=== PATIENT | female | born 1935 | race Caucasian/White ===

== ENCOUNTER → 2016-05-11 | Outpatient (CLI) | payer OTHER, MEDICARE ==
[~2016-05-11] MED LIST: CALC-51; EVISTA; FISHOIL; GLUCOSAMINE/CHONDROI; METR0.754; MULT-506; PRMVC; SYN150; VITAMIN E; [UNRECOGNIZED DRUG - CODE]; [UNRECOGNIZED DRUG - OTHER]
--- NOTE | 2016-05-11 16:47 | MAMMOGRAPHY REPORT ---
BILATERAL DIGITAL SCREENING MAMMOGRAM WITH CAD: 05/11/2016 CLINICAL HISTORY: Routine screening examination. TECHNIQUE: Bilateral CC and MLO views were obtained. Current study was also evaluated with a Comput er Aided Detection (CAD) system. COMPARISON: Comparison is made to exams dated: 05/02/2015 mammogram, 01/12/2013 mammogram, 12/31/2011 mammogram, 04/28/2010 mammogram - [facility], 07/23/2008, and 09/30/2007. BREAST COMPOSITION: There are scattered areas of fibroglandular density in both breasts. FINDINGS: There are stable benign-appearing rodlike and coarse calcifications in the breasts. No kaminski spicious mass, architectural distortion or cluster of microcalcifications is seen. IMPRESSION: ACR BI-RADS CATEGORY 1: NEGATIVE There is no mammographic evidence of malignancy. A 1 year screening mammogram is recommended. The p atient will receive written notification of the results. Approximately 10% of breast cancers are not detected with mammography. A negative mammographic repor t should not delay biopsy if a clinically suggestive mass is present. Madie Fregoso M.D. ay/:05/11/2016 15:11:33 [employer] Supervisor: Sydnee COX)(Caro), [facility] letter sent: Normal 1/2 BI-RADS Code: ACR BI-RADS Category 1: Negative
== END | disposition home or self-care (01) ==
LOC: C.MAMM 13:17
PROVIDERS: ATTEND Family Medicine
DX: Z12.31 Encounter for screening mammogram for malignant neoplasm of breast (principal)

== ENCOUNTER → 2016-12-07 | Outpatient (CLI) | payer OTHER, MEDICARE | END | disposition home or self-care (01) | LOC: C.LABPVFM 10:11 | PROVIDERS: ATTEND Family Medicine | DX: E03.9 Hypothyroidism, unspecified (principal) ==

== ENCOUNTER → 2017-03-23 | Outpatient (CLI) | payer OTHER, MEDICARE ==
[2017-03-23 13:20] LABS: ESTIMATED AVERAGE GLUCOSE 114 mg/dl; HA1C FLAG Normal (Normal)
== END | disposition home or self-care (01) ==
LOC: C.LABPVFM 08:27
PROVIDERS: ATTEND Family Medicine
DX: R73.09 Other abnormal glucose (principal)

== ENCOUNTER → 2017-04-15 | Outpatient (CLI) | payer OTHER, MEDICARE ==
[~2017-04-15] MED LIST changes: +ADVIN25/60 INH; +CALC-354 PO; +CHOL2000 PO; +CLR10 PO; +LEVO150T9 PO; +MOME6000 NAE; +MULT-1092 PO; +OMEP20CA9 PO; +OMG3 PO; +VITA400C28 PO; +VNTHFA/IN INH
== END | disposition home or self-care (01) ==
LOC: C.PATHSPEC 13:38
PROVIDERS: ATTEND Dermatology
DX: C44.622 Squamous cell carcinoma of skin of right upper limb, including shoulder (principal)

== ENCOUNTER → 2017-05-25 | Outpatient (CLI) | payer OTHER, MEDICARE ==
[~2017-05-25] MED LIST changes: -ADVIN25/60 INH; -CALC-354 PO; -CHOL2000 PO; -CLR10 PO; -LEVO150T9 PO; -MOME6000 NAE; -MULT-1092 PO; -OMEP20CA9 PO; -OMG3 PO; -VITA400C28 PO; -VNTHFA/IN INH
== END | disposition home or self-care (01) ==
LOC: C.PATHSPEC 12:00
PROVIDERS: ATTEND Plastic Surgery
DX: D04.61 Carcinoma in situ of skin of right upper limb, including shoulder (principal)

== ENCOUNTER → 2017-07-09 | Outpatient (CLI) | payer OTHER, MEDICARE ==
--- NOTE | 2017-07-12 12:43 | MAMMOGRAPHY REPORT ---
BILATERAL DIGITAL SCREENING MAMMOGRAM TOMOSYNTHESIS WITH CAD: 07/09/2017 CLINICAL HISTORY: Routine screening. Patient has no complaints. TECHNIQUE: Breast tomosynthesis in addition to standard 2D mammography was performed. Current study was also evaluated with a Computer Aided Detection (CAD) system. COMPARISON: Comparison is made to exams dated: 05/11/2016 mammogram, 05/02/2015 mammogram, 01/15/2014 m ammogram, 01/12/2013 mammogram, 12/30/2012 mammogram, and 12/31/2011 mammogram - [facility]. BREAST COMPOSITION: There are scattered areas of fibroglandular density in both breasts. FINDINGS: No suspicious masses, calcifications, or areas of architectural distortion are noted in ei ther breast. There has been no significant interval change compared to prior exams. Scattered bilater al benign-appearing calcifications are not significantly changed. IMPRESSION: ACR BI-RADS CATEGORY 2: BENIGN There is no mammographic evidence of malignancy. A 1 year screening mammogram is recommended. The pa tient will receive written notification of the results. Approximately 10% of breast cancers are not detected with mammography. A negative mammographic report should not delay biopsy if a clinically suggestive mass is present. Kelel Downey M.D. /:07/09/2017 14:37:12 Skein Drier: Adriana COX)(M), [facility] letter sent: Normal 1/2 BI-RADS Code: ACR BI-RADS Category 2: Benign
== END | disposition home or self-care (01) ==
LOC: C.MAMM 14:05
PROVIDERS: ATTEND Family Medicine
DX: Z12.31 Encounter for screening mammogram for malignant neoplasm of breast (principal)

== ENCOUNTER 2017-07-25 13:26 | Emergency (ER) | payer OTHER, MEDICARE ==
[~2017-07-25] VITALS: Ht 157.5 cm; Wt 63.2 kg
[2017-07-25 13:36] VITALS: TEMP 36.5; Ht 157.5 cm; Wt 63.2 kg
[2017-07-25 14:08] VITALS: O2SAT 95
[2017-07-25] MEDS ORDERED: ALBUTEROL 0.083% NEBU SOLN 3 ML VIAL INH STA (14:22)
--- NOTE | 2017-07-25 14:24 | EMERGENCY ROOM VISIT NOTE ---
History Report prepared by Bertha: Aguilar Haddad Under the Supervision of: Dr. Donn Krishna M.D. First contact with patient: 14:17 Chief Complaint: SHORTNESS OF BREATH Stated Complaint: RETAINING FLUID,CHEST FEELS FULL History of Present Illness The patient is an 82 year old female with a history of asthma who presents to the Emergency Room with complaints of persistent shortness of breath with exertion over the past couple days. She states that when walking her dog the past few days, she has gotten more short of breath than usual. The patient says that she noticed when she woke up this morning that her right knee was swollen. She notes that there is a sore spot above the right knee, but the knee is not actually swollen. The patient says that she has not twisted or injured the knee. She denies any knee pain with walking. The patient notes that she is not on any blood thinners or water pills. Source of History: patient Onset: Past few days Position: other (global) Symptom Intensity: while walking dog gets SOB Quality: other (SOB on exertion) Timing: other (persitent) Modifying Factors (Worsening): exertion Note: Associated symptoms: Right knee swelling starting today with sore spot above knee. Denies right knee pain. Review of Systems See HPI for pertinent positives & negatives. A total of 10 systems reviewed and were otherwise negative. Past Medical & Surgical Medical Problems: (1) Asthma Family History No pertinent family history Social History Smoking Status: Former Smoker Drug Use: none Marital Status: Occupation Status: retired Current/Historical Medications Scheduled Calcium Carbonate-Cholecalcife (Caltrate 600+D), 1 TAB PO BID Cholecalciferol (Vitamin D3), 1 CAP PO DAILY Fish Oil (Fish Oil), 1 CAP PO BID Fluticasone Prop/Salmeterol (Advair Diskus 250/50 60 Dose), 1 PUFF INH BID Levothyroxine Sodium (Levothyroxine Sodium), 1 TAB PO DAILY Loratadine (Claritin), 10 MG PO DAILY Mometasone Furoate (Nasal) (Mometasone Furoate), 1 SPRAY CHELA BID Multiple Vitamins W/ Minerals (Centrum Silver 50+Women), 1 TAB PO DAILY Omeprazole (Prilosec), Unknown Dose PO DAILY Vitamin E (Alph-E), 1 CAP PO DAILY Scheduled PRN Albuterol Hfa (Ventolin Hfa), 2-4 PUFFS INH Q6H PRN for SOB/Wheezing Miscellaneous Medications Metronidazole Hcl (Metrocream) Allergies Coded Allergies: Penicillins (Unverified Allergy, Intermediate, ITCHY/RASH, 07/25/17) Sulfa Drugs (Unverified Allergy, Intermediate, RASH/ITCHY, 07/25/17) Latex (Unverified Allergy, Mild, RASH, 07/25/17) Physical Exam Vital Signs Date Time Temp Pulse Resp B/P (MAP) Pulse Ox O2 Delivery O2 Flow Rate FiO2 07/25/17 17:20 75 20 131/71 93 Room Air 07/25/17 15:31 69 20 153/82 95 Room Air 07/25/17 14:50 98 Room Air 07/25/17 14:09 66 07/25/17 14:08 95 Room Air 07/25/17 13:36 36.5 77 16 146/88 96 Room Air Physical Exam GENERAL: Awake, alert, well-appearing, in no acute distress HENT: Normocephalic, atraumatic. Oropharynx unremarkable. EYES: Normal conjunctiva. Sclera non-icteric. NECK: Supple. No nuchal rigidity. FROM. No JVD. RESPIRATORY: Clear to auscultation. CARDIAC: Regular rate, normal rhythm. Extremities warm and well perfused. Pulses equal. ABDOMEN: Soft, non-distended. No tenderness to palpation. No rebound or guarding. No masses. RECTAL: Deferred. MUSCULOSKELETAL: Chest examination reveals no tenderness. The back is symmetrical on inspection without obvious abnormality. There is no CVA tenderness to palpation. No joint edema. LOWER EXTREMITIES: Calves are equal size bilaterally and non-tender. Slight swelling to the right medial knee. No discoloration. NEURO: Normal sensorium. No sensory or motor deficits noted. SKIN: No rash or jaundice noted. Medical Decision & Procedures ER Provider Diagnostic Interpretation: Radiology results as stated below per my review and radiologist interpretation: ULTRASOUND R VENOUS DOPP LOWER EXT UNILAT CLINICAL HISTORY: Right leg pain COMPARISON STUDY: No previous studies for comparison. FINDINGS: Real-time and color flow Doppler imaging were performed. Flow was seen within the femoral, popliteal and calf veins with no intraluminal thrombus demonstrated. The saphenous vein is patent. There is a 13 x 25 x 4 mm complex right popliteal cyst. IMPRESSION: No evidence of right lower extremity DVT. Electronically signed by: Manuelito Reinoso M.D. 07/25/2017 4:57 PM Dictated Date/Time: 07/25/2017 4:57 PM R KNEE 2 VIEWS ROUTINE CLINICAL HISTORY: Right knee pain COMPARISON: None. DISCUSSION: No acute fractures are visualized. There is chondrocalcinosis. There is calcification in the region of the lateral collateral ligament. There is dorsal patellar spurring. There is a trace joint effusion. IMPRESSION: Moderate osteoarthritic change. No acute fractures. Electronically signed by: Manuelito Reinoso M.D. 07/25/2017 2:54 PM Dictated Date/Time: 07/25/2017 2:53 PM CHEST ONE VIEW PORTABLE CLINICAL HISTORY: Shortness of breath COMPARISON STUDY: No previous studies for comparison. FINDINGS: The cardiac and mediastinal contours are normal. There is no evidence of focal pulmonary consolidation. There is no evidence of failure. No pleural effusions are visualized.[ IMPRESSION: No active disease in the chest. Electronically signed by: Manuelito Reinoso M.D. 07/25/2017 2:53 PM Dictated Date/Time: 07/25/2017 2:53 PM Laboratory Results 07/25/17 13:55 Red Blood Count 4.86, Mean Corpuscular Volume 91.6, Mean Corpuscular Hemoglobin 30.9, Mean Corpuscular Hemoglobin Concent 33.7, Mean Platelet Volume 8.2, Neutrophils (%) (Auto) 48.4, Lymphocytes (%) (Auto) 33.0, Monocytes (%) (Auto) 11.2, Eosinophils (%) (Auto) 7.0, Basophils (%) (Auto) 0.2, Neutrophils # (Auto ) 4.55, Lymphocytes # (Auto) 3.10, Monocytes # (Auto) 1.05, Eosinophils # (Auto ) 0.66, Basophils # (Auto) 0.02 07/25/17 13:55 Test 07/25/17 13:55 07/25/17 15:16 White Blood Count 9.40 K/uL (4.8-10.8) Red Blood Count 4.86 M/uL (4.2-5.4) Hemoglobin 15.0 g/dL (12.0-16.0) Hematocrit 44.5 % (37-47) Mean Corpuscular Volume 91.6 fL (80-100) Mean Corpuscular Hemoglobin 30.9 pg (25-34) Mean Corpuscular Hemoglobin Concent 33.7 g/dl (32-36) Platelet Count 187 K/uL (130-400) Mean Platelet Volume 8.2 fL (7.4-10.4) Neutrophils (%) (Auto) 48.4 % Lymphocytes (%) (Auto) 33.0 % Monocytes (%) (Auto) 11.2 % Eosinophils (%) (Auto) 7.0 % Basophils (%) (Auto) 0.2 % Neutrophils # (Auto) 4.55 K/uL (1.4-6.5) Lymphocytes # (Auto) 3.10 K/uL (1.2-3.4) Monocytes # (Auto) 1.05 K/uL (0.11-0.59) Eosinophils # (Auto) 0.66 K/uL (0-0.5) Basophils # (Auto) 0.02 K/uL (0-0.2) RDW Standard Deviation 45.7 fL (36.4-46.3) RDW Coefficient of Variation 13.7 % (11.5-14.5) Immature Granulocyte % (Auto) 0.2 % Immature Granulocyte # (Auto) 0.02 K/uL (0.00-0.02) Anion Gap 7.0 mmol/L (3-11) Est Creatinine Clear Calc Drug Dose 43.8 ml/min Estimated GFR () 71.4 Estimated GFR (Non- 61.6 BUN/Creatinine Ratio 21.3 (10-20) Calcium Level 9.7 mg/dl (8.5-10.1) Total Bilirubin 0.5 mg/dl (0.2-1) Aspartate Amino Transf (AST/SGOT) 23 U/L (15-37) Alanine Aminotransferase (ALT/SGPT) 37 U/L (12-78) Alkaline Phosphatase 59 U/L (45-117) Total Creatine Kinase 138 U/L (26-192) Creatine Kinase MB 2.4 ng/ml (0.5-3.6) Creatine Kinase MB Ratio 1.7 (0-3.0) Troponin I < 0.015 ng/ml (0-0.045) Total Protein 8.3 gm/dl (6.4-8.2) Albumin 4.2 gm/dl (3.4-5.0) Globulin 4.1 gm/dl (2.5-4.0) Albumin/Globulin Ratio 1.0 (0.9-2) Urine Color YELLOW Urine Appearance CLEAR (CLEAR) Urine pH 5.5 (4.5-7.5) Urine Specific [place] 1.009 (1.000-1.030) Urine Protein NEG (NEG) Urine Glucose (UA) NEG (NEG) Urine Ketones NEG (NEG) Urine Occult Blood TRACE (NEG) Urine Nitrite NEG (NEG) Urine Bilirubin NEG (NEG) Urine Urobilinogen NEG (NEG) Urine Leukocyte Esterase NEG (NEG) Urine WBC (Auto) 0 /hpf (0-5) Urine RBC (Auto) 5-10 /hpf (0-4) Urine Hyaline Casts (Auto) 0 /lpf (0-5) Urine Epithelial Cells (Auto) 0-5 /lpf (0-5) Urine Bacteria (Auto) NEG (NEG) Labs reviewed by ED physician. Medications Administered Medications (Trade) Dose Ordered Sig/[place] Route Start Time Stop Time Status Last Admin Dose Admin Albuterol Sulfate (Ventolin 0.083% 2.5MG/3ML Neb) 2.5 mg NOW STAT INH 07/25/17 14:22 07/25/17 14:26 DC 07/25/17 14:49 2.5 MG ECG Per My Interpretation Indication: SOB/dyspnea Rate (beats per minute): 68 Rhythm: normal sinus Findings: other (no ST elevation or depression, normal axis) ED Course 1419: Past medical records reviewed. The patient was evaluated in room B2. A complete history and physical examination was performed. 1422: Ventolin 0.083% 2.5MG/3ML Neb 2.5 mg INH. 1711: Upon reexamination the patient is resting. I discussed results and treatment plan with the patient. She verbalizes agreement and understanding. The patient is ready for discharge. Medical Decision Differential diagnosis: Etiologies such as infections, reactive airway disease, pneumonia, pneumothorax , COPD, CHF, cardiac ischemia, pulmonary embolism, musculoskeletal, gastrointestinal, as well as others were entertained. This is an 82-year-old female presents emergency department complaining of swelling to her right knee area. Patient denies twisting or pulling it in any way. The patient is also concerned about her heart though she denies any chest pain or shortness of breath. chest x-ray does not suggest any volume overload and the patient has a normal EKG. I do believe that the patient is suffering from a Cam cyst based on the ultrasound of the right lower extremity. I stressed the need for follow-up with the patient's orthopedic surgeon. Patient was in agreement with the treatment plan. Medication Reconcilliation Current Medication List: was personally reviewed by me Blood Pressure Screening Patient's blood pressure: Elevated blood pressure Blood pressure disposition: Elevated BP felt to be situational Impression Primary Impression: Cam's cyst of knee Scribe Attestation The scribe's documentation has been prepared under my direction and personally reviewed by me in its entirety. I confirm that the note above accurately reflects all work, treatment, procedures, and medical decision making performed by me. Departure Information Dispostion Home / Self-Care Referrals Emma Claros M.D. (PCP) Delbert Cifuentes M.D. Patient Instructions ED Cyst [place], My [facility] Additional Instructions Follow up with Dr Cifuentes's office You have been examined and treated today on an emergency basis only. This is not a substitute for, or an effort to provide, complete comprehensive medical care. It is impossible to recognize and treat all injuries or illnesses in a single emergency department visit. It is therefore important that you follow up closely with Dr Claros's office. Call as soon as possible for an appointment. Thank you for your time and consideration. I look forward to speaking with you again soon. Please don't hesitate to call us if you have any questions. Problem Qualifiers Primary Impression: Cam's cyst of knee Laterality: right Qualified Codes: M71.21 - Synovial cyst of popliteal space [Dorina], right knee
[2017-07-25 14:40] LABS: ALBUMIN 4.2 gm/dl (3.4-5.0); ALT/SGPT 37 U/L (12-78); BLOOD UREA NITROGEN 19 mg/dl (7-18); CALCIUM 9.7 mg/dl (8.5-10.1); CARBON DIOXIDE 28 mmol/L (21-32); CREATININE 0.88 mg/dl (0.60-1.20); GLUCOSE 89 mg/dl (70-99); POTASSIUM 4.1 mmol/L (3.5-5.1); SODIUM 135 mmol/L (136-145)
[2017-07-25] MEDS ORDERED: MOME6000 NAE (14:42)
[2017-07-25] MEDS ORDERED: OMEP20CA9 PO (14:42)
[2017-07-25] MEDS ORDERED: ADVIN25/60 INH (14:42)
[2017-07-25] MEDS ORDERED: MULT-1092 PO (14:42)
[2017-07-25] MEDS ORDERED: LEVO150T9 PO (14:42)
[2017-07-25] MEDS ORDERED: CHOL2000 PO (14:42)
[2017-07-25] MEDS ORDERED: CALC-354 PO (14:42)
[2017-07-25] MEDS ORDERED: VITA400C28 PO (14:42)
[2017-07-25] MEDS ORDERED: OMG3 PO (14:42)
[2017-07-25] MEDS ORDERED: VNTHFA/IN INH (14:42)
[2017-07-25 14:45] LABS: ALKALINE PHOSPHATASE 59 U/L (45-117); AST/SGOT 23 U/L (15-37); CKMB 2.4 ng/ml (0.5-3.6); TOTAL PROTEIN 8.3 gm/dl (6.4-8.2)
[2017-07-25] MEDS ORDERED: CLR10 PO (14:46)
--- NOTE | 2017-07-25 14:54 | DIAGNOSTIC IMAGING REPORT ---
CHEST ONE VIEW PORTABLE CLINICAL HISTORY: Shortness of breath COMPARISON STUDY: No previous studies for comparison. FINDINGS: The cardiac and mediastinal contours are normal. There is no evidence of focal pulmonary consolidation. There is no evidence of failure. No pleural effusions are visualized.[ IMPRESSION: No active disease in the chest. Electronically signed by: Manuelito Reinoso M.D. 07/25/2017 2:53 PM Dictated Date/Time: 07/25/2017 2:53 PM
--- NOTE | 2017-07-25 14:56 | DIAGNOSTIC IMAGING REPORT ---
R KNEE 2 VIEWS ROUTINE CLINICAL HISTORY: Right knee pain COMPARISON: None. DISCUSSION: No acute fractures are visualized. There is chondrocalcinosis. There is calcification in the region of the lateral collateral ligament. There is dorsal patellar spurring. There is a trace joint effusion. IMPRESSION: Moderate osteoarthritic change. No acute fractures. Electronically signed by: Manuelito Reinoso M.D. 07/25/2017 2:54 PM Dictated Date/Time: 07/25/2017 2:53 PM
[2017-07-25 16:06] LABS: BASO % 0.2 %; BASO ABS # 0.02 K/uL (0-0.2); EOS ABS # 0.66 K/uL (0-0.5); HEMATOCRIT 44.5 % (37-47); IG# 0.02 K/uL (0.00-0.02); MEAN CELL VOLUME 91.6 fL (80-100); MEAN CORPUSCULAR HEMOGLOBIN 30.9 pg (25-34); MEAN CORPUSCULAR HGB CONC 33.7 g/dl (32-36); MEAN PLATELET VOLUME 8.2 fL (7.4-10.4); MONO % 11.2 %; MONO ABS # 1.05 K/uL (0.11-0.59); NEUT % 48.4 %; NEUT ABS # 4.55 K/uL (1.4-6.5); PLATELET COUNT 187 K/uL (130-400); RED CELL DISTRIBUTION WIDTH CV 13.7 % (11.5-14.5); RED CELL DISTRIBUTION WIDTH SD 45.7 fL (36.4-46.3)
--- NOTE | 2017-07-25 16:59 | DIAGNOSTIC IMAGING REPORT ---
ULTRASOUND R VENOUS DOPP LOWER EXT UNILAT CLINICAL HISTORY: Right leg pain COMPARISON STUDY: No previous studies for comparison. FINDINGS: Real-time and color flow Doppler imaging were performed. Flow was seen within the femoral, popliteal and calf veins with no intraluminal thrombus demonstrated. The saphenous vein is patent. There is a 13 x 25 x 4 mm complex right popliteal cyst. IMPRESSION: No evidence of right lower extremity DVT. Electronically signed by: Manuelito Reinoso M.D. 07/25/2017 4:57 PM Dictated Date/Time: 07/25/2017 4:57 PM
[2017-07-25 17:20] VITALS: BP 131/71; PULSE 75; O2SAT 93
== END 2017-07-25 17:50 | disposition home or self-care (01) ==
LOC: C.EDB 13:26
DX: M71.21 Synovial cyst of popliteal space [Baker], right knee (principal); J45.909 Unspecified asthma, uncomplicated; Z87.891 Personal history of nicotine dependence; Z79.899 Other long term (current) drug therapy; Z88.0 Allergy status to penicillin; Z88.2 Allergy status to sulfonamides; Z91.040 Latex allergy status

== ENCOUNTER → 2017-07-29 | Outpatient (CLI) | payer OTHER, MEDICARE ==
[~2017-07-29] MED LIST changes: +ADVIN25/60 INH; +CALC-354 PO; -CALC-51; +CHOL2000 PO; +CLR10 PO; -EVISTA; -FISHOIL; -GLUCOSAMINE/CHONDROI; +LEVO150T9 PO; +MOME6000 NAE; +MULT-1092 PO; -MULT-506; +OMEP20CA9 PO; +OMG3 PO; -PRMVC; -SYN150; +VITA400C28 PO; -VITAMIN E; +VNTHFA/IN INH; -[UNRECOGNIZED DRUG - CODE]; -[UNRECOGNIZED DRUG - OTHER]
== END | disposition home or self-care (01) ==
LOC: C.LABSPEC 13:38
PROVIDERS: ATTEND Dermatology
DX: T81.4XXA Infection following a procedure, initial encounter (principal); Y83.9 Surgical procedure, unspecified as the cause of abnormal reaction of the patient, or of later complication, without mention of misadventure at the time of the procedure

== ENCOUNTER → 2017-09-01 | Outpatient (CLI) | payer OTHER, MEDICARE ==
[2017-09-01 13:21] LABS: HEMATOCRIT 37.8 % (37-47); HEMOGLOBIN 12.5 g/dL (12.0-16.0); MEAN CELL VOLUME 90.2 fL (80-100); MEAN CORPUSCULAR HEMOGLOBIN 29.8 pg (25-34); MEAN CORPUSCULAR HGB CONC 33.1 g/dl (32-36); RED CELL DISTRIBUTION WIDTH CV 13.2 % (11.5-14.5); RED CELL DISTRIBUTION WIDTH SD 43.5 fL (36.4-46.3); WHITE BLOOD COUNT 5.45 K/uL (4.8-10.8)
[2017-09-01 13:26] LABS: ALT/SGPT 33 U/L (12-78); AST/SGOT 21 U/L (15-37); BLOOD UREA NITROGEN 10 mg/dl (7-18); CALCIUM 8.9 mg/dl (8.5-10.1); CARBON DIOXIDE 30 mmol/L (21-32); CREATININE 0.66 mg/dl (0.60-1.20); GLUCOSE 82 mg/dl (70-99); POTASSIUM 3.4 mmol/L (3.5-5.1); SODIUM 142 mmol/L (136-145)
[2017-09-01 13:28] LABS: ALKALINE PHOSPHATASE 44 U/L (45-117)
[2017-09-01 13:42] LABS: MEAN PLATELET VOLUME 11.4 fL (7.4-10.4); PLATELET COUNT 132 K/uL (130-400)
[2017-09-01 13:44] LABS: BASO % 0.4 %; BASO ABS # 0.02 K/uL (0-0.2); EOS % 5.1 %; EOS ABS # 0.28 K/uL (0-0.5); IG# 0.02 K/uL (0.00-0.02); LYMPH % 35.6 %; LYMPH ABS # 1.94 K/uL (1.2-3.4); MONO % 13.6 %; MONO ABS # 0.74 K/uL (0.11-0.59); NEUT % 44.9 %; NEUT ABS # 2.45 K/uL (1.4-6.5)
== END | disposition home or self-care (01) ==
LOC: C.LABPVFM 11:12
PROVIDERS: ATTEND Family Medicine
DX: K52.9 Noninfective gastroenteritis and colitis, unspecified (principal)

== ENCOUNTER → 2017-11-18 | Outpatient (CLI) | payer OTHER, MEDICARE | END | disposition home or self-care (01) | LOC: C.LABPVFM 13:58 | PROVIDERS: ATTEND Family Medicine | DX: E03.9 Hypothyroidism, unspecified (principal) ==

== ENCOUNTER → 2017-12-10 | Outpatient (CLI) | payer OTHER, MEDICARE ==
[2017-12-10 16:58] LABS: ALBUMIN 3.8 gm/dl (3.4-5.0); ALKALINE PHOSPHATASE 55 U/L (45-117); ALT/SGPT 31 U/L (12-78); AST/SGOT 19 U/L (15-37); BLOOD UREA NITROGEN 16 mg/dl (7-18); CALCIUM 9.6 mg/dl (8.5-10.1); CARBON DIOXIDE 26 mmol/L (21-32); CREATININE 0.82 mg/dl (0.60-1.20); GLUCOSE 87 mg/dl (70-99); POTASSIUM 4.1 mmol/L (3.5-5.1); SODIUM 139 mmol/L (136-145); TOTAL PROTEIN 7.8 gm/dl (6.4-8.2)
[2017-12-11 06:26] LABS: HEMOGLOBIN A1C 5.8 % (4.5-5.6)
[2017-12-13 13:42] LABS: HEMATOCRIT 42.4 % (37-47); HEMOGLOBIN 13.9 g/dL (12.0-16.0); MEAN CORPUSCULAR HEMOGLOBIN 30.5 pg (25-34); MEAN CORPUSCULAR HGB CONC 32.8 g/dl (32-36); RED CELL DISTRIBUTION WIDTH CV 13.9 % (11.5-14.5); RED CELL DISTRIBUTION WIDTH SD 47.2 fL (36.4-46.3); WHITE BLOOD COUNT 8.25 K/uL (4.8-10.8)
[2017-12-13 13:50] LABS: BASO % 0.1 %; BASO ABS # 0.01 K/uL (0-0.2); EOS % 6.9 %; EOS ABS # 0.57 K/uL (0-0.5); IG# 0.02 K/uL (0.00-0.02); LYMPH % 34.4 %; LYMPH ABS # 2.84 K/uL (1.2-3.4); MEAN PLATELET VOLUME 10.8 fL (7.4-10.4); MONO % 13.1 %; MONO ABS # 1.08 K/uL (0.11-0.59); NEUT % 45.3 %; NEUT ABS # 3.73 K/uL (1.4-6.5); PLATELET COUNT 157 K/uL (130-400)
== END | disposition home or self-care (01) ==
LOC: C.LABBC 13:55
PROVIDERS: ATTEND Physician Assistant Medical
DX: L65.9 Nonscarring hair loss, unspecified (principal); R73.09 Other abnormal glucose

== ENCOUNTER 2022-01-09 09:31 | Observation (INO) ==
--- NOTE | 2021-12-05 12:20 | PAT Medication Instructions ---
Medication Instructions Date of Service December 05, 2021 Home Medications Medication Instructions Recorded fluticasone 100 mcg-salmeterol 50 1 ea inhalation BID #60 ea 10/04/ mcg/dose blistr powdr for inhalation albuterol sulfate 90 mcg/actuation 2 puff inhalation Q4H PRN 03/04/21 aerosol inhaler shortness of breath or wheezing #18 grams ipratropium bromide 21 mcg (0.03 2 spray intranasal BID #30 mL 03/31/ %) nasal spray levothyroxine 150 mcg tablet 150 mcg PO QAM #90 tabs 11/10/21 Wheeled Walker #1 ea 11/18/21 calcium carbonate 600 mg calcium (1,500 mg) tablet 600 mg PO QAM multivit with ejonnjhi-xvqw-EW-lutein 8 mg iron-400 mcg-300 mcg tablet (Centrum Silver Women) 1 tab PO QAM omega-3 fatty acids 1,000 mg capsule (Fish Oil Concentrate) 1,000 mg PO QAM fluticasone 100 mcg-salmeterol 50 mcg/dose blistr powdr for inhalation 1 ea inhalation BID albuterol sulfate 90 mcg/actuation aerosol inhaler 2 puff inhalation Q4H PRN shortness of breath or wheezing ipratropium bromide 21 mcg (0.03 %) nasal spray 2 spray intranasal BID omeprazole 20 mg capsule,delayed release 20 mg PO QAM levothyroxine 150 mcg tablet 150 mcg PO QAM vit C 250 mg-vit E 90 mg-zinc 40 mg-copper 1 ng-kvigim-gamcbl capsule (PreserVision AREDS-2) 1 tab PO BID STOP taking 2 weeks before surgery omega-3 fatty acids 1,000 mg capsule (Fish Oil Concentrate) 1,000 mg PO QAM vit C 250 mg-vit E 90 mg-zinc 40 mg-copper 1 az-gjbeyi-zvouuf capsule (PreserVision AREDS-2) 1 tab PO BID DO NOT take the morning of surgery calcium carbonate 600 mg calcium (1,500 mg) tablet 600 mg PO QAM multivit with vqmfrqkt-dswy-BS-lutein 8 mg iron-400 mcg-300 mcg tablet (Centrum Silver Women) 1 tab PO QAM Take morning of surgery With a small sip of water, OTHERWISE NOTHING TO EAT OR DRINK AFTER MIDNIGHT: fluticasone 100 mcg-salmeterol 50 mcg/dose blistr powdr for inhalation 1 ea inhalation BID albuterol sulfate 90 mcg/actuation aerosol inhaler 2 puff inhalation Q4H PRN shortness of breath or wheezing (use if needed; please bring with you to hospi anne day of surgery if possible) ipratropium bromide 21 mcg (0.03 %) nasal spray 2 spray intranasal BID omeprazole 20 mg capsule,delayed release 20 mg PO QAM levothyroxine 150 mcg tablet 150 mcg PO QAM Take evening before surgery fluticasone 100 mcg-salmeterol 50 mcg/dose blistr powdr for inhalation 1 ea inhalation BID albuterol sulfate 90 mcg/actuation aerosol inhaler 2 puff inhalation Q4H PRN shortness of breath or wheezing (if needed) ipratropium bromide 21 mcg (0.03 %) nasal spray 2 spray intranasal BID Other Notes If you have any questions please call us at [phone] or [phone] or [phone] or [phone]
--- NOTE | 2021-12-09 10:28 | Anesthesiology Consultation ---
Date of Service December 09, 2021 Assessment & Plan (1) Encounter for pre-operative examination: - Abnormal preop CXR: CXR done 12/09/21 shows "Possible 1.4 cm right lower lobe nodular density. This favors the normal overlapping pulmonary vessels. However, follow-up dedicated chest CT recommended to exclude a pulmonary nodule." Chest CT scheduled 12/17 ([facility])- Awaiting report. Patient otherwise acceptable risk for surgery. - Outpatient joint assessment: Pt currently scheduled for inpatient pathway. If surgeon requests review for outpatient joint pathway, patient is not acceptable candidate for outpatient joint program from anesthesia standpoint. Chart Review Chart Review: Patient seen in Pre Admission Testing Teaching & Discussion Pre-Anesthesia Teaching/Discussion Notes: Instructed NPO after midnight before surgery,except medications with 15 cc of water. Medication instructions provide d according to the PAT guidelines. History Surgery Operation Date: 01/13/22 07:15 Proposed Procedures p Left Total Knee Arthroplasty - Carlos Fierro, DO Height/Weight Height: 5 ft Weight: 60 kg Allergies Allergy/AdvReac Type Severity Reaction Status Date / Time latex Allergy Mild Rash Verified 12/09/21 10:27 Sulfa (Sulfonamide AdvReac Intermediate Rash, itchy Verified 12/09/21 10:27 Antibiotics) NSAIDS (Non-Steroidal AdvReac Mild Contraindicated Verified 12/09/21 10:33 Anti-Inflamma d/t indigestion/"stomach issues" per pt Medications Home Medications Medication Instructions Recorded Confirmed Last Taken calcium carbonate 600 mg calcium 600 mg PO QAM 09/26/18 12/02/21 08/31/21 (1,500 mg) tablet multivit with 1 tab PO QAM 09/26/18 12/02/21 08/31/21 foabqaqy-ypmt-PY-lutein 8 mg iron-400 mcg-300 mcg tablet (Centrum Silver Women) omega-3 fatty acids 1,000 mg 1,000 mg PO QAM 09/26/18 12/02/21 08/31/21 capsule (Fish Oil Concentrate) fluticasone 100 mcg-salmeterol 50 1 ea inhalation BID #60 ea 10/04/20 12/02/21 09/01/21 mcg/dose blistr powdr for inhalation albuterol sulfate 90 mcg/actuation 2 puff inhalation Q4H PRN 11/16/21 08/16/22 Unknown aerosol inhaler shortness of breath or wheezing #18 grams ipratropium bromide 21 mcg (0.03 2 spray intranasal BID #30 mL 03/31/21 12/02/21 09/01/21 %) nasal spray omeprazole 20 mg capsule,delayed 20 mg PO QAM 08/28/21 12/02/21 08/31/21 release levothyroxine 150 mcg tablet 150 mcg PO QAM #90 tabs 11/10/21 12/02/21 Unknown Wheeled Walker #1 ea 11/18/21 11/18/21 Unknown vit C 250 mg-vit E 90 mg-zinc 40 1 tab PO BID 12/02/21 12/02/21 Unknown mg-copper 1 oz-qyqyhp-jtszsw capsule (PreserVision AREDS-2) Past Medical History Medical History Asthma Stable Degenerative disc disease Cervical region History of skin cancer Left leg, right forearm Hyperlipidemia Hypertrophy of nasal turbinates Hypothyroidism Macular degeneration Overactive bladder Sleep apnea Severe with nocturnal hypoexmia per PCP records No device (could not tolerate) Squamous cell carcinoma of arm Biopsied 04/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 s/p wide excision 05/20/2017 to right forearm Exercise / Class Metabolic Activity II 4-5 Yardwork/Stairs/Walk up hill (one FS (no CP, no SOB)) Past Family History Family History Father Prostate cancer Other No family history of adverse response to anesthesia Denies family history of Ovarian cancer Myocardial infarction Breast cancer Colorectal cancer Past Surgical History Surgical History H/O hernia repair History of amputation LEFT FOOT TOE History of anesthesia reaction Slow to wake History of appendectomy History of arthroscopy LEFT KNEE History of cataract surgery RT/LEFT History of colonoscopy History of colonoscopy History of hemorrhoidectomy History of laparoscopic cholecystectomy History of tonsillectomy and adenoidectomy History of tooth extraction History of tubal ligation Hx of radioactive iodine thyroid ablation Past Anesthesia History No Family Hx of Anesthesia Complications and Other ("Slow to wake"/no similar issues with colonoscopy) History of PONV No Hx of PONV and No Hx of Motion Sickness Social History Smoking Status: Former smoker tobacco type: cigarettes Do You Dip or Chew Tobacco: No Smoking End Date: Quit 1994 (hx 1 PPD) Hx Alcohol Use: Yes alcohol intake frequency: holidays/special occasions only Hx Substance Use: No substance use type: does not use Review of Systems Patient denies chest pain, shortness of breath, dyspnea on exertion, fever, chills, cough, wheezing, palpitations. Physical Exam Vital Signs VITALS BP 119/75 P 78 TEMP 98.2 SP02 96%RA RESP 16 PHYSICAL Mildly decreased cervical extension range of motion. Full TMJ range of motion. TMD 3.5 finger breaths Mallampati Score 2 Dentition: intact, + several caps/implants (including possible upper front caps) Lungs: clear throughout to auscultation Cardiac: regular rate and rhythm, no murmurs noted Spine: normal Carotid arteries: negative bruit Extremities: no edema Short neck Lab Results Anesthesia Preop Results Results Anesthesia Widget: WBC 6.86 K/ul (4.8-10.8) 12/09/21 Hgb 13.9 g/dl (12.0-16.0) 12/09/21 Hct 43.0 % (34.1-44.9) 12/09/21 Plt K/uL (130-400) 12/09/21 Na 138 mmol/L (136-145) 12/09/21 K 4.1 mmol/L (3.5-5.1) 12/09/21 Cl 103 mmol/L (98-107) 12/09/21 CO2 28 mmol/L (21-32) 12/09/21 BUN 19 mg/dl (6-23) 12/09/21 Creat 0.71 mg/dl (0.6-1.2) 12/09/21 Glucose Level 112 mg/dl (70-99(Fasting)) H 12/09/21 PT 11.3 Seconds (9.0-12.0) 12/09/21 PTT 25.4 Seconds (21.0-31.0) 12/09/21 INR 1.1 (0.9-1.1) 12/09/21 Blood Type O Positive 12/09/21 Antibody Screen NEGATIVE 12/09/21 Testing Laboratory Results 12/11/21 PLT 176 (done with sodium citrate medium d/t known hx of platelet clumping) Electrocardiogram Date: 12/09/21 Findings: + NSR @ (73) Chest X-Ray Date: 12/09/21 FINDINGS: No pneumothorax. No pleural effusions. The heart is normal in size. Prior cholecystectomy. No focal lung consolidations to suggest pneumonia. No evidence for pulmonary edema. Calcifications within the aortic knob. Possible 1.4 cm right lower lobe nodular density. IMPRESSION: No acute process within the chest. Possible 1.4 cm right lower lobe nodular density. This favors the normal overlapping pulmonary vessels. However, follow-up dedicated chest CT recommended to exclude a pulmonary nodule. This report was called/faxed to the referring physician following dictation.
--- NOTE | 2022-01-08 08:33 | History & Physical Report ---
Date of Service January 08, 2022 Assessment & Plan (1) Osteoarthritis of left knee: We will proceed with a left total knee arthroplasty. Postoperatively she will be started on aspirin for DVT prophylaxis and kept overnight in the hospital for postoperative medical management. She plans to use energy physical therapy upon discharge. History of Present Illness Chief Complaint: Osteoarthritis of the left knee. Primary Care Provider: Sumit Hernandez MD Yenny is a pleasant 86-year-old female who has been dealing with chronic worsening left knee pain. X-rays on clinical examination have the diagnostic for advanced osteoarthritis of the left knee. I have been giving her serial injections. The injections are not helping as much anymore. She has tried ac tivity modifications and anti-inflammatories without relief. She is struggling more and more with her left knee. After failing conservative treatment, she has elected proceed with a left total knee arthroplasty. Allergies Allergy/AdvReac Type Severity Reaction Status Date / Time latex Allergy Mild Rash Verified 12/09/21 10:27 Sulfa (Sulfonamide AdvReac Intermediate Rash, itchy Verified 12/09/21 10:27 Antibiotics) NSAIDS (Non-Steroidal AdvReac Mild Contraindicated Verified 12/09/21 10:33 Anti-Inflamma d/t indigestion/"stomach issues" per pt Home Medications Medication Instructions Recorded Confirmed Type calcium carbonate 600 mg calcium 600 mg PO QAM 09/26/18 12/02/21 History (1,500 mg) tablet multivit with 1 tab PO QAM 09/26/18 12/02/21 History zmelihes-vpoz-EA-lutein 8 mg iron-400 mcg-300 mcg tablet (Centrum Silver Women) omega-3 fatty acids 1,000 mg 1,000 mg PO QAM 09/26/18 12/02/21 History capsule (Fish Oil Concentrate) albuterol sulfate 90 mcg/actuation 2 puff inhalation Q4H PRN 03/04/21 12/02/21 Rx aerosol inhaler shortness of breath or wheezing #18 grams ipratropium bromide 21 mcg (0.03 2 spray intranasal BID #30 mL 03/31/21 12/02/21 Rx %) nasal spray omeprazole 20 mg capsule,delayed 20 mg PO QAM 08/28/21 12/02/21 History release levothyroxine 150 mcg tablet 150 mcg PO QAM #90 tabs 11/10/21 12/02/21 Rx Wheeled Walker #1 ea 11/18/21 11/18/21 Rx vit C 250 mg-vit E 90 mg-zinc 40 1 tab PO BID 12/02/21 12/02/21 History mg-copper 1 hc-idesvk-rizfnx capsule (PreserVision AREDS-2) fluticasone 100 mcg-salmeterol 50 1 ea inhalation BID #60 ea 01/05/22 Rx mcg/dose blistr powdr for inhalation Past Med/Surg History Medical History Asthma Stable Degenerative disc disease Cervical region History of skin cancer Left leg, right forearm Hyperlipidemia Hypertrophy of nasal turbinates Hypothyroidism Macular degeneration Overactive bladder Sleep apnea Severe with nocturnal hypoexmia per PCP records No device (could not tolerate) Squamous cell carcinoma of arm Biopsied 04/15/17 s/p wide excision 05/20/2017 to right forearm Surgical History H/O hernia repair History of amputation LEFT FOOT TOE History of anesthesia reaction Slow to wake History of appendectomy History of arthroscopy LEFT KNEE History of cataract surgery RT/LEFT History of colonoscopy History of colonoscopy History of hemorrhoidectomy History of laparoscopic cholecystectomy History of tonsillectomy and adenoidectomy History of tooth extraction History of tubal ligation Hx of radioactive iodine thyroid ablation Family History Father Prostate cancer Other No family history of adverse response to anesthesia Denies family history of Ovarian cancer Myocardial infarction Breast cancer Colorectal cancer Social History Smoking Status: Former smoker Second Hand Exposure: No; Hx Alcohol Use: Yes Alcohol type: hard liquor Alcohol type Comment: whiskey Alcohol Intake Frequency: Monthly or Less Hx Substance Use: No Preferred Language: Icelandic Communication Ability: Effective Visual Impairment: Limited Hearing Ability: Normal Roulette Dealer Required: No Beliefs That Will Affect Care: None marital status: / Current Living Situation: Alone Current Living Situation Comment: Children are helping post op current occupational status: retired How many Children do You have: 4 Feels Safe at Home: Yes Childhood Exposure to Second-Hand Smoke: Yes caffeine: Yes Dental Care, Regularly: Yes Physical Activity Frequency: Daily Seatbelt Use: always Sunscreen Use: Yes Assistive Devices: Glasses Review of Systems All systems reviewed & are unremarkable except as noted in HPI & below. Physical Exam On physical examination of left knee, she is slight varus deformity. She is range of motion of 0 to 120 degrees. She has no instability.. Constitutional WD/WN, vitals as above Eyes PERRL, conjunctivae normal, anicteric sclerae ENMT external ear and nose normal, oropharynx normal Neck trachea midline, no thyromegaly Respiratory normal respiratory effort, lungs clear to auscultation Cardiovascular RRR, no murmur, no edema Gastrointestinal (Abdomen) normal bowel sounds, soft, nontender, no hepatosplenomegaly Skin no rashes, warm and dry Psychiatric A+Ox3, euthymic affect Results & Data Results & Data Laboratory Results . Diagnostic Findings X-rays of the left knee show advanced osteoarthritis with joint space narrowing, osteophyte formation, and uhtv-qz-gjgb articulation. PG Care Time/CCT Total # of Minutes Spent Total Time Spent with Patient: Total time spent is greater than 50% in coordination of care (as documented) at patient's floor/unit and/or counseling patient: Coding Level of Care Code None Diagnoses Osteoarthritis of left knee M17.12
[~2022-01-09 09:31] MED LIST changes: +ACETAMINOPHEN 500 MG TAB PO SCH; -ADVIN25/60 INH; +BUPIVACAINE 0.5 % 5 MG/1 ML PF 10ML VIAL ONE; -CALC-354 PO; -CHOL2000 PO; -CLR10 PO; +FAMOTIDINE 20 MG TAB PO SCH; +GABAPENTIN 300 MG CAP PO SCH; -LEVO150T9 PO; +LR 500ML BOLUS, THEN 15ML/HR IV SCH; +LR 60ML/HR IV SCH; -METR0.754; -MOME6000 NAE; -MULT-1092 PO; -OMEP20CA9 PO; -OMG3 PO; +ORTHO JOINT MIX INFIL SCH; +ROPIVACAINE 0.5% 5 MG/ML 30 ML VIAL ONE; +TRANEXAMIC ACID 1,000 MG **IV Intra-op IV SCH; +TRANEXAMIC ACID 1,000 MG **IV Pre-op IV SCH; -VITA400C28 PO; -VNTHFA/IN INH; +ceFAZolin 2000MG 2,000 MG/15 ML SYR IV SCH; +dexAMETHasone 4 MG TAB PO SCH
[2022-01-09 10:14] LABS: Platelet Count 157 K/uL (130-400)
[2022-01-09] MEDS ORDERED: MIDAZOLAM HCL 1 MG/ML 2ML VIAL ONE (10:33)
--- NOTE | 2022-01-09 11:34 | History & Physical Bridge Note ---
Date of Service January 09, 2022 History & Physical Bridge Note I have examined the patient, reviewed the History & Physical and in the interval since the performance of the History & Physical I have noted the following changes of clinical significance: no changes noted
[2022-01-09] MEDS ORDERED: ORTHO JOINT ANESTHETIC ONE (12:01)
[2022-01-09] MEDS ORDERED: ONDANSETRON INJ 2 MG/ML 2 ML VIAL IV PRN ×2 (12:18→16:15)
[2022-01-09] MEDS ORDERED: fentaNYL citrate 100 MCG/2 ML VIAL IV PRN (12:18)
[2022-01-09] MEDS ORDERED: ePHEDrine sulfate 50 MG/ML AMP IV PRN (12:18)
[2022-01-09] MEDS ORDERED: ATROPINE SULFATE 0.1 MG/ML 10ML SYR IV PRN (12:18)
[2022-01-09] MEDS ORDERED: PROPOFOL IV EMULSION 10 MG/ML 20 ML VIAL IV ONE (12:49)
[2022-01-09] MEDS ORDERED: LIDOCAINE 2% MPF LOCAL 5 ML VIAL INFIL ONE (12:49)
[2022-01-09] MEDS ORDERED: ONDANSETRON INJ 2 MG/ML 2 ML VIAL ONE (12:49)
--- NOTE | 2022-01-09 13:36 | Operative Report ---
PG Post Operative Report Pre & Post Diagnosis Operation Date: 01/09/22 12:20 Pre-Op Diagnosis: Left Knee Degenerative Joint Disease Post-Op Diagnosis: Left Knee Degenerative Joint Disease I identified the patient and participated in the time-out.: Yes Procedure Operation Date: 01/09/22 12:20 Actual Procedures p Left Total Knee Arthroplasty(Left) - Carlos Fierro DO Surgeon Carlos Fierro DO Ladder Operator Carlos Cochran PA-C Estimated Blood Loss 20 Findings Consistent with Post-Op Diagnosis Specimens Left femoral and tibial bone Description of Procedure Implants used: I used a Cheryl Persona total knee arthroplasty system with a size 6 standard femur, D tibia, 28 oval patella, and a size 12 medial congruent polyethylene bearing. All components were cemented in place with Biomet cement. Yenny arrived [facility] for the above procedure. She was seen in the preoperative holding area and the operative extremity was identified and signed. She was given a preoperative antibiotic, TXA, a spinal anesthetic and an adductor nerve block. She was taken back to the operating room and laid on the table in supine position. She was given basic sedation. The operative knee was then prepped and draped in sterile fashion. A timeout was done, and the patient and the operative extremity was properly identified. A midline incision was made directly over the patella. Dissection was taken down to the extensor mechanism. A subvastus arthrotomy was used. The medial retinaculum was released and the fat pad was mostly excised. The knee was flexed and the ACL, PCL, and meniscus were removed. A drill was sent down the center of the femoral canal followed by an intramedullary naomi. Off that naomi a distal femoral cutting block was placed. 9 mm was resected off the distal femur at 5 of valgus. A posterior referencing AP sizing guide was then placed on the distal femur. The femur measured to be a size 6. 2 drill holes were placed in 3 of external rotation. A 4-in-1 cutting block was then impacted into place. Anterior, posterior, and chamfer cuts were then made. The proximal tibia was then exposed. An external tibial alignment guide was placed. A tibial cut guide was then anchored in place and the proximal tibia was then resected. The posterior aspect of the knee was then opened up and any additional meniscus fragments and osteophytes were removed. The tibia measured to be a size D. The tibial plate was then placed in the appropriate rotation and the tibia was drilled and punched. Trial components were then placed. I used a size 12 medial congruent polyethylene insert. The knee was brought through a full range of motion and felt to be stable. The peg holes for the femoral component were then drilled. The patella was then everted and 9 mm was resected off the posterior aspect of the patella. The patella measured to be a size 28 oval. 3 peg holes were then drilled. A trial patella was placed. The knee was once again brought through a full range of motion and felt to be stable. Trial components were then removed. The surrounding soft tissues were injected with 100 cc of an orthopedic pain control cocktail. All components were then cemented into place with Biomet cement. The final polyethylene insert was then snapped into place. Once cement was dry the tourniquet was deflated. Hemostasis was obtained. A dilute betadyne lavage was then done for 3 minutes. The joint was then irrigated with normal saline solution. The subvastus arthrotomy was then closed with #1 Vicryl suture. The skin was closed with 2-0 Vicryl, 3-0V lock suture, and katy. A soft compressive dressing was placed. She was then transferred to a hospital bed and taken to the postanesthesia care unit in stable condition. She tolerated the procedure well. Carlos Cochran PA-C, was present for the entire procedure. He was critical for patient positioning, prepping, draping, retraction exposure, wound closure and application of sterile dressing. I attest to the content of the Intraoperative Record and any orders documented therein. Any exceptions are noted below.
--- NOTE | 2022-01-09 14:15 | XRay Report ---
TWO VIEWS LEFT KNEE CLINICAL HISTORY: Postoperative examination. FINDINGS: AP and crosstable lateral portable views of the left knee are obtained. A left knee arthrop lasty is in near anatomic alignment. There has been undersurface remodeling of the patella. No acute fracture is seen. There are expected postoperative changes around the knee including skin clips, soft tissue edema, and subcutaneous gas. There is advanced atherosclerotic calcification of the popliteal artery. IMPRESSION: Expected postoperative changes status post left knee arthroplasty. No acute fracture is s een. ACT 112: Negative or not required by law. Electronically signed by: Waqas Springer M.D. 01/09/2022 2:14 PM
--- NOTE | 2022-01-09 14:17 | Anesthesiology Progress Note ---
Date of Service January 09, 2022 Anesthesia Post Procedure Vital Signs Vital Signs: Temp Pulse Pulse Resp BP Pulse Ox O2 Del Method 01/09/22 14:10 66 16 113/61 94 Oxymask 01/09/22 14:00 36.0 C L 70 16 117/65 96 Oxymask 01/09/22 09:57 36.4 C L 73 20 137/85 96 Room Air O2 Flow Rate 01/09/22 14:10 2 01/09/22 14:00 5 01/09/22 09:57 Transfer of Care Handoff Completed per policy Notes Mental Status: alert / awake / arousable and participated in evaluation Patient Amnestic to Procedure: Yes Nausea / Vomiting: adequately controlled Pain: adequately controlled Airway Patency, RR, SpO2: stable & adequate BP & HR: stable & adequate Hydration State: stable & adequate Neuraxial Anesthesia: was administered and sensory block is resolving Anesthetic Complications: no major complications apparent and Pt Satisfied with anesthetic care
[2022-01-09] MEDS ORDERED: ALBUTEROL HFA 8 GM INHALER INH PRN (16:15)
[2022-01-09] MEDS ORDERED: MAGNESIUM HYDROXIDE SUSP 30 ML UDC PO PRN (16:15)
[2022-01-09] MEDS ORDERED: METOCLOPRAMIDE HCL INJ 5 MG/ML 2 ML VIAL IV PRN (16:15)
[2022-01-09] MEDS ORDERED: HYDROmorphone INJ 0.5 MG/0.5 ML SYR IV PRN (16:15)
[2022-01-09] MEDS ORDERED: bisacodyL 10 MG SUPP PR PRN (16:15)
[2022-01-09] MEDS ORDERED: NALOXONE HCL 0.4 MG/1 ML VIAL/CARP IV PRN (16:15)
[2022-01-09] MEDS: ACETAMINOPHEN 500 MG TAB PO SCH ×2 (17:49→21:04)
[2022-01-09] MEDS: SODIUM CHLORIDE 0.9% 1000ML 1,000 ML IV SCH (17:50)
[2022-01-09] MEDS: ASPIRIN 81 MG ECTAB PO SCH (19:41)
[2022-01-09] MEDS: DOCUSATE SODIUM 100 MG CAP PO SCH (19:41)
[2022-01-09] MEDS: ceFAZolin 2000MG 2,000 MG/15 ML SYR IV SCH (19:41)
[2022-01-09] MEDS ORDERED: SENNA 8.6 MG TAB PO SCH (21:00)
[2022-01-10] MEDS: SODIUM CHLORIDE 0.9% 1000ML 1,000 ML IV SCH (03:43)
[2022-01-10] MEDS: oxyCODONE HCL IR 5 MG TAB (IMMEDIATE RELEASE) PO PRN ×2 (03:51→08:39)
[2022-01-10] MEDS: ceFAZolin 2000MG 2,000 MG/15 ML SYR IV SCH (03:53)
[2022-01-10] MEDS: ACETAMINOPHEN 500 MG TAB PO SCH (05:32)
[2022-01-10] MEDS ORDERED: LEVOTHYROXINE SODIUM 150 MCG TABLET PO SCH (06:30)
--- NOTE | 2022-01-10 07:22 | Orthopedic Progress Note ---
Date of Service January 10, 2022 Assessment & Plan (1) Status post left knee replacement: Overall she is doing very well. She is not any much pain in the left knee. She is on aspirin for DVT prophylaxis. She will be seen by physical therapy today for ambulation and range of motion exercises. She can be discharged home later today. She will follow-up with orthopedics in 2 weeks. Alpa Ramon was seen and examined at bedside this morning. Overall she is doing very well. She is now having much pain in the left knee. She has been up and ambulating to the bathroom. She has no complaints.. Review of Systems All systems reviewed & are unremarkable except as noted in HPI & below. Physical Exam On physical examination of the left knee, the dressing is clean and dry. Her leg is out to full extension. She has active dorsiflexion plantarflexion of her left ankle.. Results & Data Results & Data Laboratory Results . Diagnostic Findings Postoperative x-rays of the left knee show the prosthesis to be in anatomic alignment without any evidence of fracture, desiccation, or loosening. PG Care Time/CCT Total # of Minutes Spent Total Time Spent with Patient: Total time spent is greater than 50% in coordination of care (as documented) at patient's floor/unit and/or counseling patient: Coding Level of Care Code 94296 Post Operative Follow-Up Diagnoses Status post left knee replacement Z96.652
--- NOTE | 2022-01-10 07:23 | Discharge Summary ---
Date of Service January 10, 2022 Admission HPI (Per Admitting) Yenny is a pleasant 86-year-old female who has been dealing with chronic worsening left knee pain. X-rays on clinical examination have the diagnostic for advanced osteoarthritis of the left knee. I have been giving her serial injections. The injections are not helping as much anymore. She has tried activity modifications and anti-inflammatories without relief. She is struggling more and more with her left knee. After failing conservative t reatment, she has elected proceed with a left total knee arthroplasty. Admission Exam (Per Admitting) On physical examination of left knee, she is slight varus deformity. She is range of motion of 0 to 120 degrees. She has no instability.. Principal Diagnosis Same as "Discharge Diagnosis" noted below under Discharge Instructions. Discharge Exam On physical examination of the left knee, the dressing is clean and dry. Her leg is out to full extension. She has active dorsiflexion plantarflexion of her left ankle.. Discharge Data Procedures Performed Operation Date: 01/09/22 12:20 Actual Procedures p Left Total Knee Arthroplasty(Left) - Carlos Fierro DO Ordered Studies 01/09/22 05:00 US - OR guided needle placemen Routine Hospital Course (1) Status post left knee replacement: On January 09, 2022 Yenny arrived at [facility] and underwent a left knee replaced without complication. She had a spinal anesthetic. Postoperatively she was started on aspirin for DVT prophylaxis and transferred to the general orthopedic floors. Her hospital course was uneventful. On postop day #1, her vital signs were stable and her pain was well controlled. She was able to participate well with physical therapy doing ambulation and range of motion exercises. She was then discharged home. She will follow-up with orthopedics in 2 weeks. PG Care Time/CCT Total # of Minutes Spent Total Time Spent with Patient: Total time spent is greater than 50% in coordination of care (as documented) at patient's floor/unit and/or counseling patient: Discharge Plan Discharge Items Patient Disposition: Home - Home Health Services Reason For Visit: Left Knee Degenerative Joint Disease Discharge Diagnosis: Left knee replacement Activity: Per Instructions section Non-emergency contact: Surgeon Call non-emergency contact if: your wound has increased redness and your wound has increased drainage Follow-up/Referrals: Sumit Hernandez MD [Primary Care Provider] - Diet: Regular Addtl Attending Provider Instructions: Activity and Therapy Recommendations: * If you are using [facility] then therapy will be provided at your home until they feel you have accomplished all of your goals. * If you are using [facility] then Physical Therapy will be provided until they feel you are ready to start Outpatient Physical Therapy. * If you are not using home therapy then Outpatient Physical Therapy should start about 3-5 days from your day of surgery. Therapy will last about 6-10 weeks * It is important not to put a pillow under your knee when you are relaxing or sleeping. It is just as important to make sure you are getting your knee perfectly straight as it is to regain your knee bend. * You were shown a series of exercises in the hospital. Do these exercises three times each day including the exercises you were shown in physical therapy. * Get up and walk several times each day. For the first four weeks, try not to stand or walk for more than one hour at a time. If you do stand or walk for more than one hour, you will not hurt anything, but your leg will likely swell. * As you feel comfortable, you may change from the walker or crutches to a cane and then to independent walking. Medications: * Narcotic You will likely be sent home from the hospital with a prescription for the narcotic pain medication that worked best throughout your stay. * Aspirin Most patients will be required to take Aspirin 81mg twice a day for 6 weeks after surgery. This is obtained [id number] and a prescription is not necessary. * Other medications may be prescribed for specific circumstances. If you have any questions, please call the office at . * Resume previous home medications unless otherwise instructed TEDs/Elastic Stockings: The white elastic stockings help limit swelling and prevent blood clots from forming in your legs.~ The more you wear them, the more they work. Wear them for six weeks. Dressing Care: The dressing can be changed after physical therapy on postop day #1. Daily dry dressing changes for a few days, especially if the incision is still draining some. If the incision is not draining then you may leave the katy open to air. If there is a little bit of drainage or if the katy are getting stuck on your clothing then cover the incision with a dry dressing. The katy will be removed at your 2 week follow-up appointment. Showering: You may shower 5 days from the day of surgery as long as the incision is no longer draining. You may shower with the katy exposed. Let soapy water run over the katy and pat them dry. Do not scrub or soak the incision. Things To Watch For: * Drainage from the incision site that occurs more than one week after your surgery. * Increased redness at the incision site. * Fever above 102 degrees Fahrenheit. * Unusual chest pain or shortness of breath. * Call [facility] at with any of the above problems Follow-Up Visit: Follow-up with Dr. Fierro's PA (Carlos Cochran) 2-3 weeks after your day of surgery. He will remove your katy and answer any questions. If you have any additional questions or concerns, Dr Fierro is usually in the office at the same time and will be available An appointment was probably scheduled when you signed-up for surgery in the office. If you have any questions call Office Instructions: More detailed instructions as well as Frequently Asked Questions were provided in a folder by our office when you signed-up for surgery. Please review these instructions when you get home. If you have any further questions or concerns, please feel free to call the office at [phone] Pending Studies at Discharge: No Stand-Alone Forms: My [facility] Medications and DC Order Prescriptions: New tramadol 50 mg tablet 50 mg PO Q6H PRN (Reason: pain) Qty: 30 0RF aspirin [Adult Aspirin Regimen] 81 mg tablet,delayed release (DR/EC) 81 mg PO BID Qty: 84 0RF Continued albuterol sulfate 90 mcg/actuation HFA aerosol inhaler 2 puff inhalation Q4H PRN (Reason: shortness of breath or wheezing) Qty: 18 3RF levothyroxine 150 mcg tablet 150 mcg PO QAM Qty: 90 3RF fluticasone propion-salmeterol 100-50 mcg/dose blister with device 1 ea inhalation BID Qty: 60 3RF ipratropium bromide 21 mcg (0.03 %) spray,non-aerosol 2 spray intranasal BID Qty: 30 11RF Rx Instructions: administer into each nostril (DME) Wheeled Walker Misc See Rx Instructions .MEDSUPPLY Qty: 1 0RF Rx Instructions: As directed calcium carbonate 600 mg calcium (1,500 mg) tablet 600 mg PO QAM Centrum Silver Women 8 mg iron-400 mcg-300 mcg tablet 1 tab PO QAM omega-3 fatty acids [Fish Oil Concentrate] 1,000 mg capsule 1,000 mg PO QAM omeprazole 20 mg Capsule,Delayed Release(Dr/Ec) 20 mg PO QAM PreserVision AREDS-2 250-90-40-1 mg Capsule 1 tab PO BID Discharge Orders: Discharge Order (Routine); Ordered 01/10/22 Ordered By: Carlos Fierro Admission Data Admit Date/Time: 01/09/22 13:58 Attending Provider: Carlos Fierro Admit Provider: Carlos Fierro Primary Care Provider: Sumit Hernandez
[2022-01-10] MEDS ORDERED: dexAMETHasone 4 MG TAB PO SCH (08:00)
[2022-01-10] MEDS: DOCUSATE SODIUM 100 MG CAP PO SCH (08:37)
[2022-01-10] MEDS: ASPIRIN 81 MG ECTAB PO SCH (08:37)
[2022-01-10] MEDS ORDERED: FLUTICASONE/VILANTEROL 100/25MCG 14 PUFFS/INHALER INH SCH (09:00)
[2022-01-10] MEDS ORDERED: MULTIVITAMIN TAB PO SCH (09:00)
== END 2022-01-10 13:21 | disposition home health service (06) ==
LOC: ASU 09:31 → 3E 09:31